=== PATIENT | female | born 2000 | race Caucasian/White ===

== ENCOUNTER 2019-11-16 20:20 | Inpatient (IN) ==
[2019-11-16] MEDS ORDERED: ONDANSETRON 4 MG/2 ML VIAL IV STA (21:28)
[2019-11-16] MEDS ORDERED: ONDANSETRON 4 MG/2 ML VIAL ONE (21:32)
[2019-11-16 21:54] LABS: Apearance,Urine CLEAR (Clear); Bacteria,Urine Occasional /HPF (Few); Bilirubin,Urine Negative (Negative); Blood, Urine Small mg/dL (Negative); Glucose,Urine (UA) >=500 mg/dL (Negative); Ketones,Urine 80 mg/dL (Negative); Mucus,Urine Occasional /LPF (Occasional); Nitrite,Urine Negative (Negative); Protein,Urine 30 MG/DL; RBC,Urine 2 /HPF (0-4); Squamous Epithelial Cell,Urine Occasional /HPF (0-10); Urine Color Straw (Yellow); Urine Specific Gravity 1.023 (1.001-1.035); Urine Urobilinogen < 2.0 EU/DL (0.2-1.0)
[2019-11-16] MEDS ORDERED: ALUM/MAG/SIMETH/LIDO VISC 1:1 30 ML BOTTLE PO STA (21:55)
[2019-11-16] MEDS ORDERED: SODIUM CHLORIDE 0.9% 1,000 ML IV STA ×2 (21:55→22:28)
[2019-11-16 22:01] LABS: Basophils # 0.1 10*3/uL (0.0-0.2); Basophils % 0.6 % (0.0-0.8); Eosinophils % 0.4 % (0.00-10.9); Hematocrit 47.5 VOL% (35.7-47.0); Hemoglobin 16.2 GM/DL (12.0-16.0); Immature Granulocytes % 0.7 %; Immature Granulocytes Absolute 0.08 #; Lymphocytes % 36.7 % (21.3-54.2); Mean Corpuscular HGB Conc 34.1 GM/DL (32-36); Mean Platelet Volume 9.6 FL (9.6-12.0); Monocytes % 3.8 % (1.7-12.7); Neutrophils % 57.8 % (38.7-73.9); Platelet Count 430 T/CUMM (130-400); Red Blood Count 5.11 MC/CUMM (3.8-5.5); Red Cell Distribution Width 11.6 % (9.3-17.3); White Blood Count 10.8 T/CUMM (4-12)
[2019-11-16 22:09] LABS: INR 0.9; PT Patient Result 9.4 SECS (9.6-12.2)
[2019-11-16 22:16] LABS: Alanine Aminotransferase 22 U/L (13-56); Albumin 4.9 G/DL (3.4-5.0); Alkaline Phosphatase 154 U/L (45-117); Aspartate Amino Transferase 17 U/L (0-37); Blood Urea Nitrogen 20 MG/DL (7-18); Calcium 9.3 MG/DL (8.5-10.1); Estimated Glom Filtration Rate 52 ML/MIN; Osmolality,Calculated 296.2 MOS/KG (273-304); Total Protein 8.8 G/DL (6.4-8.3); Troponin I < 0.015 NG/ML (0.00-0.045)
[2019-11-16 22:17] LABS: Glucose 572 MG/DL (74-106)
[2019-11-16 22:20] LABS: ABG Base Excess -26.7 MMOL/L (-2.5-2.5); ABG HCO3 7.6 MMOL/L (20-26); ABG Oxygen Saturation 97.7 % (95-100); ABG TCO2 3.3 MMOL/L (23-27)
[2019-11-16 22:23] LABS: ABG PCO2 12.1 MM HG (35-48); ABG PH 7.094 (7.35-7.45)
[2019-11-16] MEDS ORDERED: ONDANSETRON 4 MG/2 ML VIAL IV ONE (22:28)
[2019-11-16] MEDS ORDERED: INSULIN REGULAR DRIP 100 ML IV PRN (22:28)
[2019-11-16] MEDS ORDERED: KETOROLAC 30 MG/1 ML VIAL IV STA (22:45)
[2019-11-16] MEDS ORDERED: DEXTROSE 10% 250 ML BAG IV PRN ×2 (23:01)
[2019-11-16] MEDS ORDERED: POTASSIUM CHLORIDE RIDER 10 MEQ in PREMIX 1 EACH IV PRN (23:01)
[2019-11-16] MEDS ORDERED: MAGNESIUM SULF RIDER 4 GM in PREMIX 1 EACH IV PRN (23:01)
[2019-11-16] MEDS ORDERED: SODIUM PHOSPHATE INJ 13.6 MMOL in SODIUM CHLORIDE 0.9% 250 ML IV PRN (23:01)
[2019-11-17 00:22] LABS: Osmolality,Calculated 297.7 MOS/KG (273-304)
[2019-11-17] MEDS: SODIUM CHLORIDE 0.9% 1,000 ML IV SCH ×2 (01:00→05:39)
[2019-11-17 03:54] LABS: ABG Base Excess -24.4 MMOL/L (-2.5-2.5); ABG HCO3 7.8 MMOL/L (20-26); ABG Oxygen Saturation 98.3 % (95-100); Allen Test Positive; Pt O2 Delivery Device Room Air
[2019-11-17 03:56] LABS: Calcium 7.1 MG/DL (8.5-10.1)
[2019-11-17] MEDS ORDERED: SODIUM CHLORIDE 0.9% 1,000 ML IV SCH (04:01)
[2019-11-17 04:04] LABS: ABG PCO2 13.3 MM HG (35-48); ABG PH 7.123 (7.35-7.45)
[2019-11-17 04:50] LABS: Basophils # 0.1 10*3/uL (0.0-0.2); Basophils % 0.3 % (0.0-0.8); Hematocrit 37.5 VOL% (35.7-47.0); Hemoglobin 12.3 GM/DL (12.0-16.0); Immature Granulocytes % 1.2 %; Immature Granulocytes Absolute 0.25 #; Lymphocytes # 2.9 10*3/uL (1.4-4.0); Lymphocytes % 14.1 % (21.3-54.2); Mean Corpuscular HGB Conc 32.8 GM/DL (32-36); Mean Corpuscular Volume 95.2 FL (87-102); Mean Platelet Volume 9.3 FL (9.6-12.0); Monocytes % 5.7 % (1.7-12.7); Neutrophils % 78.7 % (38.7-73.9); Platelet Count 328 T/CUMM (130-400); Red Blood Count 3.94 MC/CUMM (3.8-5.5); Red Cell Distribution Width 11.9 % (9.3-17.3); White Blood Count 20.5 T/CUMM (4-12)
[2019-11-17] MEDS: DEXT 5% NACL 0.45% KCL 20 MEQ 20 MEQ/1,000 ML BAG IV SCH ×5 (07:13→23:06)
[2019-11-17 08:30] LABS: Calcium 7.1 MG/DL (8.5-10.1); Osmolality,Calculated 281.4 MOS/KG (273-304)
[2019-11-17] MEDS: ENOXAPARIN 40 MG/0.4 ML SYRINGE SUBCUT SCH (08:52)
[2019-11-17 11:54] LABS: Calcium 7.1 MG/DL (8.5-10.1); Osmolality,Calculated 281.5 MOS/KG (273-304)
[2019-11-17 16:17] LABS: Calcium 7.3 MG/DL (8.5-10.1)
[2019-11-17] MEDS: SODIUM CHLOR 0.45% KCL 20 MEQ 20 MEQ/1,000 ML BAG IV SCH (20:45)
[2019-11-17 22:23] LABS: Calcium 7.5 MG/DL (8.5-10.1)
[2019-11-18 00:14] LABS: Calcium 7.6 MG/DL (8.5-10.1); Osmolality,Calculated 285.7 MOS/KG (273-304)
[2019-11-18] MEDS ORDERED: GLUCAGON 1 MG VIAL IM PRN (00:36)
[2019-11-18] MEDS ORDERED: DEXTROSE 10% 250 ML BAG IV PRN (00:36)
[2019-11-18] MEDS: DEXT 5% NACL 0.45% KCL 20 MEQ 20 MEQ/1,000 ML BAG IV SCH (00:40)
[2019-11-18 03:59] LABS: Basophils % 0.5 % (0.0-0.8); Eosinophils # 0.3 10*3/uL (0.0-0.87); Hematocrit 33.1 VOL% (35.7-47.0); Hemoglobin 11.4 GM/DL (12.0-16.0); Immature Granulocytes % 0.4 %; Immature Granulocytes Absolute 0.03 #; Lymphocytes # 3.4 10*3/uL (1.4-4.0); Lymphocytes % 41.5 % (21.3-54.2); Mean Corpuscular HGB Conc 34.4 GM/DL (32-36); Mean Corpuscular Volume 91.2 FL (87-102); Mean Platelet Volume 8.9 FL (9.6-12.0); Monocytes % 4.8 % (1.7-12.7); Neutrophils % 49.8 % (38.7-73.9); Platelet Count 216 T/CUMM (130-400); Red Blood Count 3.63 MC/CUMM (3.8-5.5); White Blood Count 8.3 T/CUMM (4-12)
[2019-11-18] MEDS: INSULIN REGULAR 100 UNIT/ML SUBCUT SCH ×5 (04:00→20:43)
[2019-11-18 04:17] LABS: Calcium 7.2 MG/DL (8.5-10.1); Osmolality,Calculated 289.3 MOS/KG (273-304)
[2019-11-18 04:19] LABS: Albumin 2.5 G/DL (3.4-5.0); Calcium 7.2 MG/DL (8.5-10.1); Osmolality,Calculated 291.1 MOS/KG (273-304)
[2019-11-18] MEDS: SODIUM BICARB INJ 50 MEQ, POTASSIUM CHLORIDE INJ 20 MEQ in SODIUM CHLORIDE 0.45% 1,000 ML IV SCH ×2 (05:32→15:03)
[2019-11-18] MEDS: MAGNESIUM SULF RIDER 2 GM in PREMIX 1 EACH IV PRN ×2 (05:34→21:25)
[2019-11-18] MEDS: SODIUM CHLOR 0.45% KCL 20 MEQ 20 MEQ/1,000 ML BAG IV SCH ×2 (05:38→12:44)
[2019-11-18 07:32] LABS: Calcium 7.8 MG/DL (8.5-10.1); Osmolality,Calculated 281.4 MOS/KG (273-304)
[2019-11-18] MEDS: INSULIN GLARGINE 100 UNIT/ML SUBCUT SCH (08:59)
[2019-11-18] MEDS: ENOXAPARIN 40 MG/0.4 ML SYRINGE SUBCUT SCH (09:00)
[2019-11-18 11:55] LABS: Calcium 7.5 MG/DL (8.5-10.1)
[2019-11-18] MEDS: CITALOPRAM 20 MG TABLET PO SCH (12:57)
[2019-11-18 16:10] LABS: Calcium 7.8 MG/DL (8.5-10.1); Osmolality,Calculated 280.8 MOS/KG (273-304)
[2019-11-18 19:45] LABS: Calcium 7.8 MG/DL (8.5-10.1); Osmolality,Calculated 278.3 MOS/KG (273-304)
[2019-11-18] MEDS: POTASSIUM CHLORIDE 20 MEQ TABLET PO PRN ×2 (22:14→23:45)
[2019-11-19] MEDS: INSULIN REGULAR 100 UNIT/ML SUBCUT SCH ×4 (00:32→12:55)
[2019-11-19] MEDS: CITALOPRAM 20 MG TABLET PO SCH (09:49)
[2019-11-19] MEDS: INSULIN GLARGINE 100 UNIT/ML SUBCUT SCH (09:49)
[2019-11-19] MEDS: ENOXAPARIN 40 MG/0.4 ML SYRINGE SUBCUT SCH (09:49)
[2019-11-19 12:38] VITALS: BP 123/75
== END 2019-11-19 15:14 | disposition home or self-care (01) | DRG 638 ==
LOC: N.ED 20:20 → SUATTDRO 23:01 → N.EDINP 23:01 → N.CC 23:33 → N.5E 11-18 14:07
PROVIDERS: ADMIT Internal Medicine Geriatric Medicine; ATTEND Internal Medicine